=== PATIENT | female | born 1960 | race Caucasian/White ===

== ENCOUNTER → 2017-03-07 | Outpatient (CLI) | payer BC ==
[~2017-03-07] MED LIST: ASA325 MG PO; CELEBREX200 MG PO; LIPITOR80 MG PO; MIRALAX PACKET17 GM PO; OXY IR DPS5 MG PO; PERFORM PAIN RE89 ML TP; PROTONIX40 MG PO; SENOKOT-S TABL1 EACH PO; TYLENOL DPS325 MG PO; TYLENOL EXTRA500 M1 OP; ULTRAM DPS50 MG PO
== END | disposition home or self-care (01) ==
LOC: PTH.S 10:53
DX: Z01.818 Encounter for other preprocedural examination (principal); E78.5 Hyperlipidemia, unspecified

== ENCOUNTER 2017-03-19 10:53 | Inpatient (IN) | payer BC ==
[2017-03-22] MEDS ORDERED: TYLENOL EXTRA500 M1 OP (13:50)
[2017-03-22] MEDS ORDERED: LIPITOR80 MG PO (13:50)
[2017-03-22] MEDS ORDERED: ASA325 MG PO (13:51)
[2017-03-22] MEDS ORDERED: PERFORM PAIN RE89 ML TP (13:51)
[2017-03-22] MEDS ORDERED: CELEBREX200 MG PO (13:51)
[2017-03-22] MEDS ORDERED: ULTRAM DPS50 MG PO (13:52)
[2017-03-22] MEDS ORDERED: MIRALAX PACKET17 GM PO (13:52)
[2017-03-22] MEDS ORDERED: PROTONIX40 MG PO (13:52)
[2017-03-22] MEDS ORDERED: SENOKOT-S TABL1 EACH PO (13:52)
[2017-03-22] MEDS ORDERED: OXY IR DPS5 MG PO (13:53)
[2017-07-05] MEDS ORDERED: TYLENOL DPS325 MG PO (16:38)
== END 2017-03-21 15:41 | disposition home or self-care (01) | DRG 470 ==
DX: M17.12 Unilateral primary osteoarthritis, left knee (principal); D62 Acute posthemorrhagic anemia; I10 Essential (primary) hypertension; E78.5 Hyperlipidemia, unspecified; E66.9 Obesity, unspecified; Z68.35 Body mass index [BMI] 35.0-35.9, adult